=== PATIENT | male | born 1990 | race Caucasian/White ===

== ENCOUNTER 2016-04-19 21:48 | Emergency (ER) | payer SELFPAY ==
[~2016-04-19] VITALS: Ht 180.3 cm; Wt 70.0 kg
[2016-04-19] MEDS ORDERED: PERTUSS(ACELL),DIPH,TET VAC/PF 0.5 ML VIAL IM ONE (23:15)
[2016-04-20 00:05] VITALS: BP 120/70
[2016-04-20] MEDS ORDERED: IBUPROFEN 600 MG TABLET PO ONE (00:15)
== END 2016-04-20 00:05 | disposition home or self-care (01) ==
LOC: EMS 21:50
DX: S91.331A Puncture wound without foreign body, right foot, initial encounter (principal); W22.8XXA Striking against or struck by other objects, initial encounter; Y93.89 Activity, other specified; Y92.89 Other specified places as the place of occurrence of the external cause; Y99.8 Other external cause status
CPT/HCPCS: 90471; 90715; 99284